=== PATIENT | female | born 1980 | race Caucasian/White ===

== ENCOUNTER 2016-08-02 21:56 | Observation (INO) | payer OTHER ==
[~2016-08-02] VITALS: Ht 165.1 cm; Wt 81.8 kg
[2016-08-02 21:58] VITALS: BP 150/81; PULSE 77; RESP 18; TEMP 98.1; O2SAT 98
[2016-08-02] MEDS ORDERED: SODIUM CHLORIDE 0.9% FLUSH 5 ML FLUSH IVF PRN (22:30)
--- NOTE | 2016-08-02 23:12 | PD ---
HPI Chief Complaint: Chest Pain Time Seen by Provider: 22:30 Travel History International Travel<30 days: No Contact w/Intl Traveler<30days: No Traveled to known affect area: No History of Present Illness HPI 35-year-old female with no significant past medical issues, presents to the ER today because she states she has been having several days' history of left- sided chest discomfort which worsened today. She states that it radiates from the left back and sometimes up to her neck area. She states it worsens with deep breaths at times. She denies any nausea, vomiting, or any other symptoms. Pain is currently a 3 out of 10. Modifying Factors: None Associated Signs & Symptoms: Left-sided chest pains Risk Factors: None PFSH Past Medical History Medical History: Denies Significant Hx Immunizations Current: Yes Tetanus Vaccination: > 5 Years ?: Not LMP: 07/20/2016 : 2 Para: 2 Past Surgical History Section: Yes (X 2 ) Eye Surgery: Yes Oral Surgery: Yes Social History Alcohol Use: Yes (rarely ) Tobacco Use: No Substance Use: No Allergies-Medications (Allergen,Severity, Reaction): Coded Allergies: No Known Allergies (Verified , 08/02/16) Reported Meds & Prescriptions Reported Meds & Active Scripts Active No Active Prescriptions or Reported Medications Review of Systems Except as stated in HPI: all other systems reviewed are Neg Physical Exam Narrative GENERAL: Well-nourished, well-developed young female patient in no acute distress. SKIN: Warm and dry. HEAD: Normocephalic. EYES: No scleral icterus. No injection or drainage. NECK: Supple, trachea midline. CARDIOVASCULAR: Regular rate and rhythm without murmurs, gallops, or rubs. Pulses are present and equal bilaterally. RESPIRATORY: Breath sounds equal bilaterally. No accessory muscle use. GASTROINTESTINAL: Abdomen soft, non-tender, nondistended. MUSCULOSKELETAL: No cyanosis, or edema. BACK: Nontender without obvious deformity. No CVA tenderness. Data Data Last Documented VS Vital Signs Date Time Temp Pulse Resp B/P Pulse Ox O2 Delivery O2 Flow Rate FiO2 08/02/16 23:27 100 Room Air 08/02/16 23:20 70 15 122/74 08/02/16 21:58 98.1 Orders Electrocardiogram (08/02/16 22:30) Ckmb (Isoenzyme) Profile (08/02/16 22:30) Complete Blood Count With Diff (08/02/16 22:30) Comprehensive Metabolic Panel (08/02/16 22:30) D-Dimer (08/02/16 22:30) Magnesium (Mg) (08/02/16 22:30) Prothrombin Time / Inr (Pt) (08/02/16 22:30) Act Partial Throm Time (Ptt) (08/02/16 22:30) Troponin I (08/02/16 22:30) Lipase (08/02/16 22:30) Chest, Single Ap (08/02/16 22:30) Ecg Monitoring (08/02/16 22:30) Bilateral Bp Monitoring (08/02/16 22:30) Iv Access Insert/Monitor (08/02/16 22:30) Oximetry (08/02/16 22:30) Oxygen Administration (08/02/16 22:30) Sodium Chloride 0.9% Flush (Ns Flush) (08/02/16 22:30) Labs Laboratory Tests Test 08/02/16 22:40 White Blood Count 8.7 TH/MM3 Red Blood Count 4.55 MIL/MM3 Hemoglobin 12.9 GM/DL Hematocrit 38.2 % Mean Corpuscular Volume 83.8 FL Mean Corpuscular Hemoglobin 28.3 PG Mean Corpuscular Hemoglobin 33.8 % Concent Red Cell Distribution Width 13.6 % Platelet Count 187 TH/MM3 Mean Platelet Volume 9.0 FL Neutrophils (%) (Auto) 62.7 % Lymphocytes (%) (Auto) 28.0 % Monocytes (%) (Auto) 7.5 % Eosinophils (%) (Auto) 1.5 % Basophils (%) (Auto) 0.3 % Neutrophils # (Auto) 5.5 TH/MM3 Lymphocytes # (Auto) 2.4 TH/MM3 Monocytes # (Auto) 0.7 TH/MM3 Eosinophils # (Auto) 0.1 TH/MM3 Basophils # (Auto) 0.0 TH/MM3 CBC Comment DIFF FINAL Differential Comment Prothrombin Time 11.3 SEC Prothromb Time International 1.0 RATIO Ratio Activated Partial 28.9 SEC Thromboplast Time D-Dimer Quantitative (PE/DVT) LESS THAN 0.19 MG/L FEU Sodium Level 138 MEQ/L Potassium Level 3.4 MEQ/L Chloride Level 103 MEQ/L Carbon Dioxide Level 26.8 MEQ/L Anion Gap 8 MEQ/L Blood Urea Nitrogen 9 MG/DL Creatinine 0.69 MG/DL Estimat Glomerular Filtration 98 ML/MIN Rate Random Glucose 116 MG/DL Calcium Level 8.1 MG/DL Magnesium Level 1.7 MG/DL Total Bilirubin 0.4 MG/DL Aspartate Amino Transf 8 U/L (AST/SGOT) Alanine Aminotransferase 17 U/L (ALT/SGPT) Alkaline Phosphatase 57 U/L Total Creatine Kinase 78 U/L Troponin I LESS THAN 0.02 NG/ML Total Protein 7.4 GM/DL Albumin 3.6 GM/DL Lipase 111 U/L [facility] Medical Decision Making Medical Screen Exam Complete: Yes Emergency Medical Condition: Yes Medical Record Reviewed: Yes Interpretation(s) EKG shows NSR, no ST elevation or depression, and no arrhythmias. No significant T-wave inversions. Laboratory Tests Test 08/02/16 22:40 Potassium Level 3.4 MEQ/L (3.5-5.1) Random Glucose 116 MG/DL (74-106) Calcium Level 8.1 MG/DL (8.5-10.1) Aspartate Amino Transf 8 U/L (15-37) (AST/SGOT) Troponin I LESS THAN 0.02 NG/ML (0.02-0.05) Last 24 hours Impressions Chest X-Ray 08/02/160 Signed Impressions: Service Date/Time: Tuesday, August 02, 2016 22:49 - CONCLUSION: No acute disease. Srinath Watters MD Differential Diagnosis Left-sided chest painsACS versus musculoskeletal versus PE versus pleurisy versus pneumonia Narrative Course EKG did not show any signs of acute changes. Chest x-rays unremarkable for any signs of acute pulmonary processes. D-dimer is negative. Cardiac enzymes are negative. At this point, patient has ongoing chest pain and my plan would be to admit her for further evaluation of chest pain. Diagnosis Primary Impression: CHEST PAIN, UNSPECIFIED Admitting Information Admitting Physician Requests: Admit Scripts No Active Prescriptions or Reported Meds Dany Gleason MD Aug 02, 2016 23:12
[2016-08-02 23:19] LABS: AUTOMATED NEUTROPHIL # 5.5 TH/MM3 (1.8-7.7); BASOPHIL % 0.3 % (0.0-2.0); EOSINOPHIL # 0.1 TH/MM3 (0-0.4); EOSINOPHIL % 1.5 % (0.0-4.0); HEMATOCRIT 38.2 % (35.0-46.0); HEMO FLAGS DIFF FINAL; LYMPHOCYTE # 2.4 TH/MM3 (1.0-4.8); MEAN CELL VOLUME 83.8 FL (80.0-100.0); MEAN CORPUSCULAR HEMOGLOBIN 28.3 PG (27.0-34.0); MEAN CORPUSCULAR HGB CONC 33.8 % (32.0-36.0); MONO % 7.5 % (0.0-8.0); NEUT % 62.7 % (16.0-70.0); PLATELET COUNT 187 TH/MM3 (150-450); RED BLOOD COUNT 4.55 MIL/MM3 (4.00-5.30); RED CELL DISTRIBUTION WIDTH 13.6 % (11.6-17.2); WHITE BLOOD COUNT 8.7 TH/MM3 (4.0-11.0)
[2016-08-02 23:20] VITALS: BP 122/74; PULSE 70; RESP 15; O2SAT 100
[2016-08-02 23:27] LABS: ANION GAP 8 MEQ/L (5-15); AST (GOT) 8 U/L (15-37); BICARBONATE 26.8 MEQ/L (21.0-32.0); BLOOD UREA NITROGEN 9 MG/DL (7-18); CHLORIDE 103 MEQ/L (98-107); GLOMERULAR FILTRATION RATE 98 ML/MIN (>89); MAGNESIUM 1.7 MG/DL (1.5-2.5); POTASSIUM 3.4 MEQ/L (3.5-5.1); SODIUM (NA) 138 MEQ/L (136-145)
[2016-08-02 23:31] LABS: APTT (PATIENT) 28.9 SEC (24.3-30.1); PROTHROMBIN TIME - PATIENT 11.3 SEC (9.8-11.6)
[2016-08-02 23:32] LABS: ALKALINE PHOSPHATASE 57 U/L (45-117); ALT (GPT) 17 U/L (10-53); TOTAL BILIRUBIN ADULT 0.4 MG/DL (0.2-1.0)
--- NOTE | 2016-08-02 23:32 | RADRPT ---
EXAM DATE/TIME: 08/02/2016 22:49 [facility] COMPARISON: No previous studies available for comparison. INDICATIONS : Chest pain. MEDICAL HISTORY : None. SURGICAL HISTORY : None. ENCOUNTER: Initial ACUITY: 1 day PAIN SCORE: 3/10 LOCATION: Bilateral chest FINDINGS: A single view of the chest demonstrates the lungs to be symmetrically aerated without evidence of mas s, infiltrate or effusion. The cardiomediastinal contours are unremarkable. Osseous structures are intact. CONCLUSION: No acute disease. Srinath Watters MD on August 02, 2016 at 23:30 Board Certified Radiologist. This report was verified electronically.
[2016-08-02 23:34] LABS: CREATINE KINASE 78 U/L (26-192)
[2016-08-03] VITALS (9 sets, daily range): BP systolic 108–141; BP diastolic 55–75; PULSE 57–75; RESP 17–20; TEMP 97.9–98.6; O2SAT 97–99
[2016-08-03] MEDS ORDERED: SODIUM CHLORIDE 0.9% FLUSH 5 ML FLUSH IVF PRN
[2016-08-03 02:12] LABS: CREATINE KINASE 75 U/L (26-192)
[2016-08-03 05:51] LABS: CREATINE KINASE 66 U/L (26-192)
[2016-08-03] MEDS ORDERED: POTASSIUM CHLORIDE 25 MEQ EFFERVESCENT TAB PO ONE (08:45)
[2016-08-03] MEDS ORDERED: SODIUM CHLORIDE 0.9% FLUSH 5 ML FLUSH IVF SCH (09:00)
[2016-08-03] MEDS ORDERED: ASPIRIN 325 MG TAB PO SCH (09:00)
--- NOTE | 2016-08-03 09:51 | MH ---
cc: XAVIER RUELAS DATE OF ADMISSION: 08/03/2016 DATE OF : 1980 CHIEF COMPLAINT Chest pain. HISTORY OF PRESENT ILLNESS This is a 35-year-old female that presented to the ED with two different types of chest comfort. She states for the last month and a half she has had a constant very mild achiness in the left side of her chest. It seems like it begins in the left side of her back and radiates around. It is worse when she takes in a deep breath. She has had no so associated shortness of breath, nausea or diaphoresis with these symptoms. She cannot recall anything what may have caused this discomfort. She also states that yesterday while she was at work some of her symptoms did change a little bit. Along with the constant achiness that she has had she also developed sharp discomfort in her left upper chest that lasted a split second. It recurred in the same fashion as a left upper sharp chest discomfort. This did worry her. At that time she decided to seek treatment. This occurred while she was at work. 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 She has never had cardiac work-up. She denies any history of CAD or family history of CAD. Denies recent illness. Denies fevers or chills. PAST MEDICAL HISTORY Denies hypertension, hyperlipidemia, diabetes and known CAD. FAMILY HISTORY Denies family history of CAD. SOCIAL HISTORY She is a lifetime nonsmoker. Denies illicit drugs. She has occasional alcohol on holidays. She is . PAST SURGICAL HISTORY Noncontributory. ALLERGIES No known drug allergies. MEDICATIONS Denies. REVIEW OF SYSTEMS GENERAL: Denies fevers or chills. Denies recent illnesses. HEENT: Denies headache, earache, sore throat, difficulty swallowing. CARDIOVASCULAR: Describes the discomfort as mentioned above. Denies diaphoresis. Denies sensation of heart beating rapidly or irregularly. Denies syncope. RESPIRATORY: No shortness of breath. The aching discomfort was worse when she took in a deep breath. Denies coughing, wheezing or hemoptysis. GASTROINTESTINAL: Denies nausea, vomiting, diarrhea, abdominal pain or blood in the stool. MUSCULOSKELETAL: Denies joint pain or edema. Denies calf pain or edema. NEUROVASCULAR: Denies headache or dizziness. ENDOCRINE: Denies polyuria or polydipsia. HEMATOLOGIC: Denies easy bruising. SKIN: Denies rash or itching. PHYSICAL EXAMINATION VITAL SIGNS: The vital signs in the emergency department initially included a blood pressure of 150/81, heart rate 77, respirations 18, pulse oximetry 98% on room air, and she was afebrile. The most recent vital signs include a blood pressure of 108/55, heart rate 75, respirations 17, pulse oximetry 98% on room air and she is afebrile. GENERAL: The patient is seen in the examination room in no apparent distress. She is very pleasant. She speaks in clear and complete sentences. She is examined with a female extractor loader and unloader. HEENT: Atraumatic, normocephalic. NECK: Supple without lymphadenopathy. Trachea is midline. No JVD or carotid bruits. CARDIOVASCULAR: Regular rate and rhythm without murmur, gallop or rub. PULMONARY: Lungs are clear to auscultation bilaterally. No wheezing, rales or rhonchi. There is a reproducible discomfort to the left lateral chest wall, somewhat similar to the discomfort back. It is not the anterior chest discomfort that she was getting. I cannot produce the discomfort with twisting of the torso. No use of accessory muscles. ABDOMEN: Soft, nontender. Bowel sounds are normal. EXTREMITIES: The patient is moving upper and lower extremities freely. No joint tenderness or edema. No calf tenderness or edema. No Homans sign. Strong pulses in the upper and lower extremities. NEUROLOGIC: The patient is alert and oriented. Cranial nerves II through XII are grossly intact. No focal deficits. Speech is clear. SKIN: No rashes. Turgor is normal. LABORATORY DATA CBC is unremarkable. Coagulation studies are unremarkable including a D-dimer normal at less than 0.19. Complete metabolic panel has potassium decreased at 3.4, glucose mildly elevated at 116, otherwise essentially unremarkable. Serial cardiac enzymes are normal x3. Lipase is normal at 111. IMAGING DATA A single-view chest x-ray read by the radiologist as no acute disease. EKG DATA EKGs have sinus rhythm without significant ST segment depression or elevation. ASSESSMENT AND PLAN 1. Atypical chest pain: The patient's discomfort is very atypical. She has had serial cardiac enzymes and EKGs for ruling out purposes. The patient will undergo a Killian protocol ETT and be seen by Dr. Ruelas. If her stress is unremarkable she will be discharged home with instructions to follow-up with a local physician. 2. Hyperglycemia: The patient's blood glucose level was 116 when arriving in the ED. She states she recently had a Re-[facility] You evaluation and her hemoglobin A1c was 5.0 which is within the normal range. She will continue to follow-up with her physician. 3. Hypokalemia: The patient was given potassium supplementation. 4. The patient is stable at this time. She is agreeable with this plan. Dictated by: Dami Carrillo PA-C MD YOANA Blank/FLORENCIO /9:12 AM /9:36 AM
--- NOTE | 2016-08-03 11:54 | EKG ---
Date Performed: 08/02/2016 Time Performed: 22:11:48 PTAGE: 35 years EKG: Sinus rhythm MILD NONSPECIFIC ST&T CHANGES BORDERLINE ECG NO PREVIOUS TRACING DOCTOR: Adarsh Tenorio Interpretating Date/Time 08/03/2016 11:53:53
--- NOTE | 2016-08-03 11:56 | EKG ---
Date Performed: 08/03/2016 Time Performed: 01:28:47 PTAGE: 35 years EKG: Sinus rhythm WITH SINUS ARRHYTHMIA NORMAL ECG NO PREVIOUS TRACING DOCTOR: Adarsh Tenorio Interpretating Date/Time 08/03/2016 11:54:45
--- NOTE | 2016-08-03 11:56 | EKG ---
Date Performed: 08/03/2016 Time Performed: 04:52:22 PTAGE: 35 years EKG: Sinus rhythm WITH SINUS ARRHYTHMIA NORMAL ECG PREVIOUS TRACING : 08/03/2016 01.28 DOCTOR: Adarsh Tenorio Interpretating Date/Time 08/03/2016 11:55:29
--- NOTE | 2016-08-03 12:08 | TR ---
Date Performed: 08/03/2016 Time Performed: 09:30:38 DOCTOR: Adarsh Tenorio DRUG LIST: CLINICAL HISTORY: REASON FOR TEST: REASON FOR ENDING: OBSERVATION: CONCLUSION: TAY PROTOCOL. NO CP. TEST STOPPED AFTER EXCEEDING GOAL HR SECONDARY TO SOB AND LEG FATIGUE. FAIR EXERCISE TOLERANCE. NORMAL BLOOD PRESSURE RESPONSE TO EXERCISE. RARE PVCs AND OCCASSIO NAL TO FREQUENT PACs WERE NOTED. ECG TRACINGS WERE NEGATIVE FOR ISCHEMIC CHANGES. RECOVERY WAS QUICK AND UNEVENTFUL WITH RESOLUTION OF SHORTNESS OF BREATH. Maximum KE=004 % Max HR Achieved=94.0% Maximum LX=637/64 Total Exercise Time=8:00 COMMENTS: CONCLUSION: Normal exercise treadmill. No evidence of ischemia.
--- NOTE | 2016-08-03 12:48 | HHI.DCPOC ---
Discharge Care Plan Diagnosis: (1) Chest pain, atypical Goals to Promote Your Health * To prevent worsening of your condition and complications * To maintain your health at the optimal level Directions to Meet Your Goals Take your medications as prescribed Follow your dietary instruction Follow activity as directed Keep your appointments as scheduled Take your immunizations and boosters as scheduled If your symptoms worsen call your PCP, if no PCP go to Urgent Care Center or Emergency Room Smoking is Dangerous to Your Health. Avoid second hand smoke Call the 24-hour hour crisis hotline for domestic abuse at Dami Carrillo Aug 03, 2016 12:48
== END 2016-08-03 13:59 | disposition home or self-care (01) ==
LOC: NEPC 21:56 → NEDA 08-03 → NEPHCDU 08-03 02:19
PROVIDERS: ADMIT Family Medicine; ATTEND Family Medicine
DX: R07.89 Other chest pain (principal); R73.9 Hyperglycemia, unspecified; R94.31 Abnormal electrocardiogram [ECG] [EKG]; E87.6 Hypokalemia
CPT/HCPCS: 71010; 80053; 82550; 83690; 83735; 84484; 85025; 85379; 85610; 85730; 93005; 93017; 99285; G0378

== ENCOUNTER 2016-09-17 10:00 | Emergency (ER) | payer OTHER ==
[~2016-09-17] VITALS: Ht 152.4 cm; Wt 82.0 kg
--- NOTE | 2016-09-17 10:06 | PD ---
HPI Chief Complaint: Right Foot Pain Time Seen by Provider: 10:05 Travel History International Travel<30 days: No Contact w/Intl Traveler<30days: No Traveled to known affect area: No History of Present Illness HPI 36-year-old female presents the emergency department after twisting her left/ankle coming into work today here at [employer]. Patient now has pain on the dorsal lateral foot with difficulty bearing weight. Pain is an 8/10 with weightbearing but at rest is a 2/10. Patient has no numbness or tingling distal to the injured area. Patient denies ankle pain or knee pain on the left. She has no known drug allergies. This is a workplace injury. PFSH Past Medical History Cardiovascular Problems: No Immunizations Current: Yes : 2 Para: 2 Past Surgical History Section: Yes (X 2 ) Eye Surgery: Yes Oral Surgery: Yes Social History Alcohol Use: Yes (rarely ) Tobacco Use: No Substance Use: No Allergies-Medications (Allergen,Severity, Reaction): Coded Allergies: No Known Allergies (Verified , 09/17/16) Reported Meds & Prescriptions Reported Meds & Active Scripts Active No Active Prescriptions or Reported Medications Review of Systems Except as stated in HPI: all other systems reviewed are Neg General / Constitutional: No: Fever Eyes: No: Visual changes HENT: No: Headaches Cardiovascular: No: Chest Pain or Discomfort Respiratory: No: Shortness of Breath Gastrointestinal: No: Abdominal Pain Genitourinary: No: Dysuria Musculoskeletal: Positive: Arthralgias, Limited ROM, Pain Skin: No Rash Neurologic: No: Weakness Psychiatric: No: Depression Endocrine: No: Polydipsia Hematologic/Lymphatic: No: Easy Bruising Physical Exam Narrative GENERAL: Patient appears in mild to moderate distress. SKIN: Warm and dry. Normal color. Normal turgor. Patient has an area of ecchymosis over the dorsal lateral left foot. HEAD: Atraumatic. Normocephalic. EYES: Pupils equal and round. No scleral icterus. No injection or drainage. ENT: No nasal bleeding or discharge. Mucous membranes pink and moist. Airway is patent. NECK: Trachea midline. Neck is supple nontender. CARDIOVASCULAR: Regular rate and rhythm. RESPIRATORY: No accessory muscle use. Clear to auscultation. Breath sounds equal bilaterally. MUSCULOSKELETAL: Extremities without clubbing, cyanosis, or edema. Patient has area of swelling and ecchymosis over the dorsal lateral foot with palpation of the lateral plantar surface. The left ankle is nontender or swollen. Neurovascular exam is intact distal to the injury. NEUROLOGICAL: Awake and alert. No obvious cranial nerve deficits. Motor grossly within normal limits. Five out of 5 muscle strength in the arms and legs. Normal speech. PSYCHIATRIC: Appropriate mood and affect; insight and judgment normal. Data Data Last Documented VS Vital Signs Date Time Temp Pulse Resp B/P Pulse Ox O2 Delivery O2 Flow Rate FiO2 09/17/16 10:07 98.5 90 20 158/87 98 Orders Foot, Complete ([id number]) (09/17/16 10:13) Ice/Cold Pack (09/17/16 10:13) MDM Medical Decision Making Medical Screen Exam Complete: Yes Emergency Medical Condition: Yes Differential Diagnosis Workplace injury. Left foot sprain. Left foot fracture. Narrative Course Patient is medically stable at time of exam. Ice pack is applied to the injured area. X-ray of the left foot is obtained. Patient has a nondisplaced fracture of the proximal fifth metatarsal on the left foot. Patient is placed in an or so boot and crutches. Worker's comp paperwork is completed with no weightbearing on the left and limited standing. Patient is given a prescription for tramadol 50 mg one every 6 hours when necessary pain. Patient is to ice and elevate as much as possible. Patient follow with employee med for further evaluation and clearance. Diagnosis Primary Impression: Nondisplaced fracture of fifth left metatarsal bone Qualified Code: S92.355A - Closed nondisplaced fracture of fifth metatarsal bone of left foot, initial encounter Referrals: Employ Med Patient Instructions: Foot Fracture in Adults (ED), General Instructions Additional Instructions: Patient has a nondisplaced fracture of the proximal fifth metatarsal on the left foot. Patient is placed in an or so boot and crutches. Worker's comp paperwork is completed with no weightbearing on the left and limited standing. Patient is given a prescription for tramadol 50 mg one every 6 hours when necessary pain. Patient is to ice and elevate as much as possible. Patient follow with employee med for further evaluation and clearance. Med/Other Pt SpecificInfo: Prescription(s) given Scripts No Active Prescriptions or Reported Meds Disposition: DISCHARGE HOME Condition: Stable Burt Kim Sep 17, 2016 10:06
[2016-09-17 10:07] VITALS: BP 158/87; PULSE 90; RESP 20; TEMP 98.5; O2SAT 98
[2016-09-17] MEDS ORDERED: TRAM50TA PO ×3 (10:34→10:36)
--- NOTE | 2016-09-17 10:35 | RADRPT ---
EXAM DATE/TIME: 09/17/2016 10:27 [facility] COMPARISON: No previous studies available for comparison. INDICATIONS : Patient rolled her foot this morning on the way to work. MEDICAL HISTORY : None. SURGICAL HISTORY : None. ENCOUNTER: Initial ACUITY: 1 day PAIN SCORE: 7/10 LOCATION: Left Foot. FINDINGS: Three view examination of the left foot demonstrates soft tissue swelling laterally. There is a nondi splaced fracture through the base of the fifth metatarsal. There is some cortical thickening of 2-4 m etatarsals but greater involving the fourth metatarsal likely stress phenomenon. The calcaneus is in tact. Bony mineralization is normal. CONCLUSION: 1. Nondisplaced fracture base of fifth metatarsal. Srinivasan Zhou MD on September 17, 2016 at 10:32 Board Certified Radiologist. This report was verified electronically.
== END 2016-09-17 10:53 | disposition home or self-care (01) ==
LOC: NEPB 10:00
DX: S92.355A Nondisplaced fracture of fifth metatarsal bone, left foot, initial encounter for closed fracture (principal); X50.1XXA Overexertion from prolonged static or awkward postures, initial encounter
CPT/HCPCS: 73630; 99283; E0113; L2114